=== PATIENT | female | born 1945 | race Caucasian/White ===

== ENCOUNTER 2019-12-03 09:47 | Outpatient (CLI) | payer MEDICARE, OTHER, SELFPAY ==
[2019-12-03 10:46] LABS: Basophils Percent Auto 1.1 % (0.2-1.2); Eosinophils Absolute Auto 0.1 K/mm3 (0-0.3); Eosinophils Percent Auto 3.1 % (0-4.4); Hematocrit 39.5 % (37.0-47.0); Immature Granulocyte Absolute 0.01 K/mm3 (0.00-0.031); Immature Granulocyte Percent A 0.3 % (0-0.5); Lymphocytes Absolute Auto 0.88 K/mm3 (0.9-3.2); Lymphocytes Percent Auto 24.4 % (18.3-44.2); Mean Corpuscular HGB Conc 32.9 g/dl (32-36); Mean Corpuscular Hemoglobin 29.5 pg (26-34); Mean Corpuscular Volume 89.8 fl (80-100); Mean Platelet Volume 9.4 fl (7.4-10.4); Monocytes Absolute Auto 0.3 K/mm3 (0.1-0.6); Monocytes Percent Auto 7.8 % (2.6-8.5); Neutrophils Absolute Auto 2.3 K/mm3 (1.3-6.7); Neutrophils Percent Auto 63.3 % (45.5-73.1); Platelet Count Result 209 k/mm3 (150-375); Red Cell Distribution Width 12.7 % (11.5-14.5); White Blood Count 3.6 K/mm3 (4.5-10.0)
[2019-12-03 10:59] LABS: Alanine Aminotransferase 18 U/L (4-35); Albumin Level 4.2 g/dL (3.5-5.1); Alkaline Phosphatase 69 U/L (38-126); Anion Gap 5 mmol/L (8-16); Aspartate Amino Transferase 23 U/L (14-36); Bilirubin,Total 0.6 mg/dL (0.2-1.3); Blood Urea Nitrogen 16 mg/dL (7-17); Calcium 9.1 mg/dL (8.4-10.2); Carbon Dioxide 30 mmol/L (22-30); Chloride 104 mmol/L (98-107); Cholesterol 166 mg/dL (0-200); Estimated Glomerular Filt Rate > 60; Glucose 100 mg/dL (65-105); HDL Direct 41 mg/dL; Potassium 4.3 mmol/L (3.4-5.0); Sodium 139 mmol/L (137-145); Triglycerides 169 mg/dL (<150)
[2019-12-03 11:10] LABS: LDL Cholesterol Direct 81 mg/dL
[2019-12-03 11:28] LABS: Vitamin D 25 Hydroxy 76.5 ng/mL
== END 2019-12-03 09:48 | disposition home or self-care (01) ==
DX: E78.00 Pure hypercholesterolemia, unspecified (principal); I12.9 Hypertensive chronic kidney disease with stage 1 through stage 4 chronic kidney disease, or unspecified chronic kidney disease; N18.3 Chronic kidney disease, stage 3 (moderate)
CPT/HCPCS: 36415; 80053; 80061; 82306; 85025

== ENCOUNTER 2020-03-01 06:39 | Outpatient (NON) | payer MEDICARE, OTHER, SELFPAY ==
[2020-03-01 23:37] LABS: SARS-CoV-2 RNA PCR Positive
== END 2020-03-01 06:40 ==
DX: U07.1 COVID-19 (principal)
CPT/HCPCS: 87635; C9803; U0003

== ENCOUNTER 2020-03-06 14:39 | Emergency (ER) | payer MEDICARE, OTHER, SELFPAY ==
[2020-03-06] VITALS (17 sets, daily range): BP systolic 118–137; BP diastolic 51–71; PULSE 70–81; RESP 16–23; TEMP 36.9; O2SAT 93–97
--- NOTE | ~2020-03-06 | XR_ITS ---
EXAMINATION: XR chest 1V portable DATE: 03/06/2020 15:17 INDICATION: Weakness. COVID-19 positive. TECHNIQUE: A single frontal view of the chest was obtained. COMPARISON: Chest 2 views 05/26/2016 FINDINGS: There are mild airspace opacities in right mid and lower lung zones and left lower lung zon e. No pleural effusion or pneumothorax. The heart size is normal. There is electronic implant in left chest wall. IMPRESSION: 1. Mild airspace opacities in right mid and lower lung zones and left lower lung zone, consistent wit h atelectasis versus pneumonia. Reviewed, dictated and finalized at location A. S ENGAGEMENT EXECUTIVE IMPRESSION: 1. Mild airspace opacities in right mid and lower lung zones and left lower gopal g zone, consistent with atelectasis versus pneumonia.
--- NOTE | 2020-03-06 14:35 | ED.WEAKNESS ---
HPI - Weakness General Chief complaint: Weakness Stated complaint: Weakness, COVID + Source: patient and EMS Mode of arrival: EMS Limitations: no limitations History of Present Illness HPI Narrative: Patient is a 74-year-old female with a recent Covid diagnosis who presents for evaluation of weakness. Patient states she has had decreased oral intake over the past 2 weeks due to diarrhea, nausea. She states that she has felt increasingly weak although she denies any chest pain, shortness of breath. No severe cough at this point. She states her diarrhea has persisted. Symptoms began last week, patient's positive contact is her spouse who she states started to feel better today. Patient denies fever or chills. She denies any vomiting. She denies any abdominal pain. Patient states she has been drinking orange juice and attempt to make herself feel better without much improvement. Patient denies any dysuria or hematuria. No focal numbness or focal weakness. Related Data Home Medications Medication Instructions Recorded Confirmed alprazolam 0.25 mg PO HS PRN 03/06/20 apixaban [Eliquis] 5 mg PO BID 03/06/20 atorvastatin 10 mg PO HS 03/06/20 cholecalciferol (vitamin D3) 125 mcg PO DAILY 03/06/20 [Vitamin D3] diltiazem HCl 180 mg PO DAILY 03/06/20 sertraline 50 mg PO DAILY 03/06/20 Allergies Allergy/AdvReac Type Severity Reaction Status Date / Time No Known Allergies Allergy Verified 03/06/20 14:47 Review of Systems Review of Systems: Narrative: CONSTITUTIONAL: Denies fever, chills, or sweats. EYES: Denies visual changes, redness, or discharge. ENT: Rhinorrhea and congestion resolved CARDIOVASCULAR: Denies chest pain, palpitations, or edema. RESPIRATORY: Denies cough or dyspnea. GASTROINTESTINAL: Denies abdominal pain, reports nausea and diarrhea GENITOURINARY: Denies dysuria or hematuria. SKIN: Denies rash or itching. MUSCULOSKELETAL: Denies back pain, joint pain, or myalgia. NEUROLOGIC: Denies headache, numbness, reporting feeling weak PMFSH Past Medical History Medical History Atrial fibrillation Depression SVT (supraventricular tachycardia) Vertigo Surgical History Surgical History H/O: hysterectomy History of appendectomy Social History Social History (Updated 03/06/20 @ 14:51 by Adrianna Grace MD) Alcohol intake: never Substance use: never Living arrangements: with family Gender identity (if verbalized by the patient): Female Exam Narrative: Exam Narrative: GENERAL: Awake, alert, conversant HEAD: Normocephalic, atraumatic. EYES: PERRLA and EOMI. ENT: Nares clear, no rhinorrhea or epistaxis. Mucous membranes dry NECK: Supple. CHEST: No respiratory distress, breathing even and non labored HEART: Regular rate, sinus rhythm ABDOMEN:Non distended, non tender EXTREMITIES: Normal range of motion. No edema. SKIN: Warm, dry, no rash. NEURO:No focal deficits. Alert and oriented x3. Finger to nose intact bilaterally. EOMs intact without nystagmus. No facial droop/asymmetry noted bilaterally. Grimace intact. Intact sensation in face. Hearing intact bilaterally. Shoulder shrug intact. Strength 5/5 bilateral upper extremities. Strength 5/5 bilateral lower extremities. Reflexes 2+ patellar. Heel to johnson intact bilaterally. Pt ambulatory with a narrow based steady gait. No ataxia. Does not require assistance. Course Vital Signs Vital signs: Vital Signs Temperature 36.9 C 03/06/20 14:43 Pulse Rate 80 03/06/20 14:43 Respiratory Rate 16 03/06/20 14:43 Blood Pressure 131/69 03/06/20 14:43 Pulse Oximetry 94 03/06/20 14:43 Temperature 36.9 C 03/06/20 14:43 Pulse Rate 70 03/06/20 16:30 Respiratory Rate 21 H 03/06/20 16:30 Blood Pressure 118/51 L 03/06/20 16:16 Pulse Oximetry 96 03/06/20 16:30 MDM - Weakness MDM Narrative Medical decision tereza
[2020-03-06 15:05] LABS: Basophils Percent Auto 0.3 % (0.2-1.2); Hematocrit 42.9 % (37.0-47.0); Hemoglobin 14.5 g/dL (12.0-15.0); Immature Granulocyte Absolute 0.01 K/mm3 (0.00-0.031); Immature Granulocyte Percent A 0.3 % (0-0.5); Lymphocytes Percent Auto 20.9 % (18.3-44.2); Mean Corpuscular HGB Conc 33.8 g/dl (32-36); Mean Corpuscular Volume 88.8 fl (80-100); Mean Platelet Volume 9.7 fl (7.4-10.4); Monocytes Absolute Auto 0.3 K/mm3 (0.1-0.6); Monocytes Percent Auto 9.6 % (2.6-8.5); Neutrophils Absolute Auto 2.3 K/mm3 (1.3-6.7); Neutrophils Percent Auto 68.9 % (45.5-73.1); Platelet Count Result 166 k/mm3 (150-375); Red Blood Count 4.83 M/mm3 (4.2-5.4); White Blood Count 3.4 K/mm3 (4.5-10.0)
[2020-03-06 15:15] LABS: Alanine Aminotransferase 20 U/L (4-35); Albumin Level 4.1 g/dL (3.5-5.1); Alkaline Phosphatase 84 U/L (38-126); Anion Gap 8 mmol/L (8-16); Aspartate Amino Transferase 31 U/L (14-36); Bilirubin,Total 0.5 mg/dL (0.2-1.3); Blood Urea Nitrogen 14 mg/dL (7-17); Calcium 8.7 mg/dL (8.4-10.2); Carbon Dioxide 28 mmol/L (22-30); Chloride 102 mmol/L (98-107); Estimated CRCL calculation 59 ml/min; Estimated Glomerular Filt Rate > 60; Glucose 110 mg/dL (65-105); INR 1.2; Potassium 4.3 mmol/L (3.4-5.0); Prothrombin Time 16.2 Seconds (11.1-14.7); Sodium 138 mmol/L (137-145)
[2020-03-06 15:16] LABS: Partial Thromboplastin Time 33.7 SECONDS (22.3-36.8)
[2020-03-06 15:23] LABS: CRP 1.3 mg/dL (<1.0); Lactate Dehydrogenase 439 U/L (313-618)
[2020-03-06 15:24] LABS: Troponin I < 0.012 ng/mL (0.000-0.034)
[2020-03-06] MEDS: ONDANSETRON INJ 4 MG/2 ML VIAL IV PUSH (15:42)
[2020-03-06] MEDS: SODIUM CHLORIDE 0.9% IV 500 ML 999 ML IV CONT (15:42)
[2020-03-06 16:20] LABS: Add Urine Microscopic? YES; Appearance Urine Clear (Clear); Bacteria Urine Trace /hpf; Bilirubin Urine 1+ (Negative); Color Urine Yellow (Yellow); Glucose Urine UA Negative (Negative); Ketones Urine Negative (Negative); Leukocyte Esterase Ur 3+ LEU/UL (Negative); Mucus Urine Rare /lpf; Nitrate Urine Negative (Negative); Protein Urine 1+ mg/dL (Negative); Specific Grav Ur 1.024 (1.001-1.035); Squamous Epithelial Cell Urine Moderate /hpf (Few); Urobilinogen Urine Negative mg/dL (<2.0); WBC Urine 51-75 /hpf
[2020-03-06 16:22] LABS: Blood Urine Negative (Negative)
== END 2020-03-06 17:04 | disposition home or self-care (01) ==
PROVIDERS: Emergency Provider Emergency Medicine
DX: U07.1 COVID-19 (principal); J12.89 Other viral pneumonia; E86.0 Dehydration; N39.0 Urinary tract infection, site not specified; I48.91 Unspecified atrial fibrillation; Z79.01 Long term (current) use of anticoagulants; F32.9 Major depressive disorder, single episode, unspecified
CPT/HCPCS: 36415; 71045; 80053; 81001; 83615; 84484; 85025; 85610; 85730; 86140; 87086; 87088; 96361; 96374; 99284; J2405; J7040

== ENCOUNTER 2020-03-11 12:39 | Outpatient (CLI) | payer MEDICARE, OTHER, SELFPAY ==
[2020-03-11 13:24] LABS: Add Urine Microscopic? YES; Appearance Urine Clear (Clear); Bilirubin Urine Negative (Negative); Blood Urine 1+ (Negative); Color Urine Yellow (Yellow); Glucose Urine UA Negative (Negative); Ketones Urine Negative (Negative); Leukocyte Esterase Ur Negative LEU/UL (Negative); Mucus Urine Rare /lpf; Nitrate Urine Negative (Negative); Protein Urine Negative (Negative); RBC Urine 0-2 /hpf (0-2); Specific Grav Ur 1.012 (1.001-1.035); Squamous Epithelial Cell Urine Rare /hpf (Few); Urobilinogen Urine Negative mg/dL (<2.0); WBC Urine 0-3 /hpf
== END 2020-03-11 12:40 | disposition home or self-care (01) ==
LOC: ANHLAB 12:46
DX: R11.0 Nausea (principal)
CPT/HCPCS: 81001

== ENCOUNTER 2024-04-23 14:12 | Emergency (ER) | payer MEDICARE, SELFPAY ==
--- NOTE | 2024-04-23 14:19 | ED.URI ---
HPI - URI/Sore Throat General Chief Complaint: Upper Respiratory Infection Stated Complaint: Cough Time Seen by Provider: 04/23/24 14:19 Source: patient Mode of arrival: ambulatory Limitations: no limitations History of Present Illness HPI Narrative: Patient is a 79-year-old female who presents with cough for 2 weeks. Has also had intermittent congestion, ear fullness and sinus pressure. Patient states in the beginning she had low-grade fever 100.7. Denies any fever currently, nausea, vomiting, diarrhea. Related Data Home Medications ?Medication ?Instructions ?Recorded ?Confirmed ?Last Taken ?Type alprazolam 0.25 mg tablet 0.25 mg PO HS PRN Insomnia 03/06/20 Unknown History apixaban 5 mg tablet (Eliquis) 5 mg PO BID 03/06/20 Unknown History atorvastatin 10 mg tablet 10 mg PO HS 03/06/20 Unknown History cholecalciferol (vitamin D3) 125 125 mcg PO DAILY 03/06/20 Unknown History mcg (5,000 unit) tablet (Vitamin D3) diltiazem HCl 180 mg 180 mg PO DAILY 03/06/20 Unknown History tablet,extended release 24 hr sertraline 50 mg tablet 50 mg PO DAILY 03/06/20 Unknown History rosuvastatin 20 mg tablet mg 04/23/24 Unknown History spironolactone 25 mg tablet mg 04/23/24 Unknown History Allergies Allergy/AdvReac Type Severity Reaction Status Date / Time No Known Allergies Allergy Verified 04/23/24 14:16 Review of Systems Review of Systems: All systems reviewed & are unremarkable except as noted in HPI and below Constitutional: Constitutional: Denies body ache(s), Denies chills, Denies fatigue, Denies fever(s), Denies headache(s), Denies malaise and Denies weakness Eyes: Eyes: Denies blurry vision, Denies itchy eyes and Denies loss of vision ENT: Denies otalgia, Denies headache(s), Reports nasal congestion, Denies sinus pain, Reports sinus pressure and Denies sore throat Cardiovascular: Cardiovascular: Denies chest pain, Denies irregular heart rhythm and Denies dyspnea Respiratory: Respiratory: Reports cough and Denies dyspnea Gastrointestinal: Gastrointestinal: Denies abdominal pain, Denies diarrhea, Denies nausea and Denies vomiting Musculoskeletal: Musculoskeletal: Denies back pain, Denies myalgias and Denies arthralgias Integumentary/Breasts: Skin/Breast: Denies pruritus and Denies rash Neurologic: Denies headache(s), Denies loss of vision and Denies weakness Psychiatric: Psychiatric: Reports no additional psychiatric complaints Endocrine: Endocrine: Denies fatigue Allergic/Immunologic: Allergic/Immunologic: Denies itchy eyes PMFSH Past Medical History Medical History Depression Atrial fibrillation SVT (supraventricular tachycardia) Vertigo Surgical History Surgical History H/O: hysterectomy History of appendectomy Social History Social History Alcohol intake: never Substance use: never Living arrangements: with family Gender identity (if verbalized by the patient): Female Comments At time of signature, agree with nursing past medical, surgical, social and family history. There is no relevant family history pertinent to the presenting complaint. Exam Const: General: cooperative, healthy appearing, comfortable, no acute distress and well nourished Nutritional Appearance: well nourished Orientation/consciousness: patient oriented x3 Limitations: no limitations HENMT: Head: normal to inspection, normocephalic and atraumatic Ears: hearing grossly normal bilaterally, external ears normal, TM's normal bilaterally, EAC's normal and no periauricular adenopathy Face/Nose/Sinus: Normal external nose present, Abnormal mucous membranes and turbinates present erythematous bilateral and diffuse, normal facial exam, sinuses nontender and face symmetric Face and sinus: normal facial exam, sinuses nontender and face symmetric Mouth: Yes Normal oral and palatal mucosa present, Yes lip normal, Yes tongue normal, Yes Normal salivary glands and ducts present, Yes oropharynx normal and Yes moist mucous membranes Teeth and gingiva: dentition normal Throat: posterior oropharynx normal, tonsils normal and uvula midline Eyes: General: appearance normal, both eyes and all related structures Alignment and Position: alignment normal and position normal Periorbital: periorbital findings normal Eyelids: eyelids normal Pupils: Equal, round and reactive pupils present Neck: Neck: normal visual inspection, full ROM, no lymphadenopathy and supple Chest: Chest palpation & inspection: normal inspection of the chest and normal palpation of entire chest wall Resp: Effort & Inspection: normal respiratory effort, able to speak in complete sentences and Actively coughing wet Auscultation: clear to auscultation bilaterally, no crackles, no rales, no rhonchi and no wheezes Cardio: Rate: regular rate Rhythm: regular rhythm Heart sounds: S1 normal heart sound present and S2 normal heart sound present GI: Inspection: normal to inspection Skin: General skin exam: normal color and no rashes or lesions noted Neuro: General: patient oriented x3 and moves all extremities Cranial nerves: Yes Equal, round and reactive pupils present Speech: normal speech Gait exam (Neuro): Normal gait present Extrem: General: normal to inspection, full ROM and no edema Psych: Appearance: grossly normal and well kempt Mental Status: mental status grossly normal Speech and movement: Normal speech and movement present Affect: normal affect Attitude: cooperative Thought process: Normal thought process present Course Course Emergency Course: Discharge instructions reviewed with patient, as well as provided in writing per nursing staff. The instructions also include specific and strict return/GO TO THE ER as well as f/u information. All questions have been answered, and the patient deny any further questions with discharge and discharge plan. Portions of this record may have been created with voice recognition software Level of Care: Express Care Visit Vital Signs Vital signs: Vital Signs Temperature 36.4 C 04/23/24 14:24 Pulse Rate 68 04/23/24 14:24 Respiratory Rate 20 04/23/24 14:24 Blood Pressure 125/62 04/23/24 14:24 Pulse Oximetry 97 04/23/24 14:24 Oxygen Delivery Room Air 04/23/24 14:24 Temperature 36.4 C 04/23/24 14:24 Pulse Rate 68 04/23/24 14:24 Respiratory Rate 20 04/23/24 14:24 Blood Pressure 125/62 04/23/24 14:24 Pulse Oximetry 97 04/23/24 14:24 Oxygen Delivery Room Air 04/23/24 14:24 Reviewed MDM - URI/Sore Throat MDM Narrative Medical decision making narrative: Pt well hydrated appearing, in no respiratory distress, hemodynamically stable. Recommend supportive care. The patient is stable at time of discharge the clinical impression was discussed and the patient was given the opportunity to ask questions, which were addressed as completely as possible given the information available at present. Anticipatory guidance and return to care precautions were discussed and the importance of primary care follow-up was stressed and encouraged. The patient voiced understanding of the plan, indications to return, and the need for follow-up. Differential diagnosis considered: Carrillo virus, strep pharyngitis, allergic rhinitis, upper respiratory tract infection, sinusitis, rhinosinusitis, nasopharyngitis. viral pharyngitis, otitis media, otitis externa, otitis effusion, foreign body, cerumen impaction, viral syndrome, and influenza.? Exam findings show no acute concerns or changes; patient is non-toxic appearing and is in no distress.? Patient is appropriate for outpatient treatment and follow-up.? Medical Records Attestation: I reviewed the patient's medical records. Discharge Plan Discharge Clinical Impression: Acute purulent bronchitis Patient Disposition: Home, Self-Care Condition: Stable Instructions: Acute Bronchitis (ED) Additional Instructions: Take antibiotic as prescribed. Take steroids per package instructions. Use Tessalon Perles as needed for cough. Use inhaler with spacer as needed. Other symptomatic treatments include: -Alternate Tylenol and Motrin per package directions for fever or pain. -Antihistamine medication such as Benadryl at night and Zyrtec/Claritin/Steffany during the day can help improve symptoms. -Use Flonase twice a day for 5 days then daily to help reduce the inflammation and dry up your sinuses. -You can also use Sudafed or Mucinex. Be sure to drink plenty of water with these medications at least 8 ounces with every dose and it is important to drink 8 to 10 glasses of water per day. Water is a natural decongestant -Eat and drink things that are easy to swallow, like tea or soup, or popsicles. -Oral rinses such as: Salt water gargles and/or may use topical anesthetic (eg. Chloraseptic spray) or lozenges to relieve dryness or throat pain). -Frequent hand washing or hand glass technician is one of the best ways to prevent spread of infection. -Using a vaporizer or humidifier at night will also help thin secretions and help with coughing up phlegm. -Follow up with primary care provider in 3-5 days if condition is not improving - For new or worsening symptoms go directly to the nearest ER Patient Language: Luxembourgish Prescriptions: New (DME) Aerochamber MV Spacer See Rx Instructions .Route Qty: 1 0RF Rx Instructions: As directed azithromycin 250 mg tablet See Rx Instructions .ROUTE .COMPLEX Qty: 6 0RF Rx Instructions: For 250 mg dose pack: take 500 mg today (day 1), then 250 mg for 4 days (days 2-5) benzonatate 100 mg capsule 100 mg PO BID PRN (Reason: cough) Qty: 14 0RF albuterol sulfate 90 mcg/actuation HFA aerosol inhaler 2 puff inhalation QID PRN (Reason: shortness of breath or wheezing) Qty: 6.7 0RF methylprednisolone [Medrol (Jerad)] 4 mg tablets,dose pack See Rx Instructions .ROUTE .COMPLEX Qty: 21 0RF Rx Instructions: orally per package directions No Action spironolactone 25 mg tablet rosuvastatin 20 mg tablet atorvastatin 10 mg Tablet 10 mg PO HS alprazolam 0.25 mg Tablet 0.25 mg PO HS PRN (Reason: Insomnia) sertraline 50 mg Tablet 50 mg PO DAILY diltiazem HCl 180 mg Tablet Extended Release 24 Hr 180 mg PO DAILY cholecalciferol (vitamin D3) [Vitamin D3] 125 mcg (5,000 unit) Tablet 125 mcg PO DAILY Eliquis 5 mg Tablet 5 mg PO BID loperamide 2 mg capsule 2 mg PO Q6H PRN (Reason: loose stool) 4 Days Qty: 20 0RF Follow-up/Referrals: UNKNOWN,DOCTOR [Non-Staff] - Time of Disposition: 14:39
[2024-04-23 14:24] VITALS: BP 125/62; PULSE 68; RESP 20; TEMP 36.4; O2SAT 97
== END 2024-04-23 14:50 | disposition home or self-care (01) ==
PROVIDERS: Emergency Provider Nurse Practitioner Family
DX: J20.9 Acute bronchitis, unspecified (principal); I48.91 Unspecified atrial fibrillation
CPT/HCPCS: 99213; G0463